=== PATIENT | male | born 1990 | race Two or more races ===

== ENCOUNTER 2021-02-19 08:35 | Emergency (ER) | payer BC ==
[~2021-02-19] VITALS: Ht 185.4 cm; Wt 79.4 kg
--- NOTE | 2021-02-19 09:08 | NUR ---
To ER bed 1, c/o L lower back/ L groin area pain x 5 days, denies any recent injury. aaox4, breathing even and non labored, awaiting md faria
[2021-02-19] MEDS ORDERED: CYCLOBENZAPRINE 10 MG TABLET PO ONE (09:30)
[2021-02-19] MEDS ORDERED: KETOROLAC TROMETHAMINE INJ 30 MG/ML VIAL IM ONE (09:30)
[2021-02-19] MEDS ORDERED: KETOROLAC TROMETHAMINE INJ 30 MG/ML VIAL IV ONE (09:30)
--- NOTE | 2021-02-19 09:34 | NUR ---
TAKEN TO CT
--- NOTE | 2021-02-19 09:50 | NUR ---
URINE COLLECTED AND SENT TO LAB
[2021-02-19] MEDS ORDERED: CYCLOBENZAPRINE 10 MG TABLET ONE (09:55)
[2021-02-19] MEDS ORDERED: KETOROLAC TROMETHAMINE 15 MG/ML VIAL ONE (09:55)
[2021-02-19 10:26] LABS: BILIRUBIN,URINE Negative (NEGATIVE); COLOR,URINE YELLOW (YELLOW); LEUKOCYTE ESTERASE ,URINE Negative (NEGATIVE); NITRITE, URINE Negative (NEGATIVE); PROTEIN,URINE Negative (NEGATIVE); UGLUCOSE Negative (NEGATIVE); UROBILINOGEN,URINE 0.2 EU/dL (0.2)
[2021-02-19] MEDS ORDERED: POLY17PO4 PO (10:43)
[2021-02-19] MEDS ORDERED: CYCL5TAB PO (10:43)
[2021-02-19] MEDS ORDERED: IBUP-1957 PO (10:43)
[2021-02-19 11:03] VITALS: BP 121/70
--- NOTE | 2021-02-19 11:05 | NUR ---
Patient discharged to home in stable condition. Written and verbal after care instructions given. Patient verbalizes understanding of instruction.
== END 2021-02-19 11:06 | disposition home or self-care (01) ==
LOC: ER 08:41
DX: M54.50 Low back pain, unspecified (principal); K59.00 Constipation, unspecified; Z79.899 Other long term (current) drug therapy
CPT/HCPCS: 74176; 81003; 96372; 99284; J1885